=== PATIENT | female | born 2000 | race Caucasian/White ===

== ENCOUNTER 2018-08-13 19:07 | Emergency (ER) | payer OTHER ==
[2018-08-13 19:35] VITALS: BP 124/76
[2018-08-13] MEDS ORDERED: Mupirocin 2% OINT* TUBE TOPICAL ONE (19:48)
--- NOTE | 2018-08-13 19:50 | UC ---
Laceration HPI - HPI Summary HPI Summary: Earlier this evening pt slipped on diving board and cut her L foot on the bottom. denies bleeding, severe pain, bruising. pt reports being up to date w/ her tetanus. - History Of Current Complaint Chief Complaint: UCLowerExtremity Stated Complaint: 3IN LAS.TO LT FOOT Time Seen by Provider: 08/13/18 19:29 Hx Obtained From: Patient Hx Last Menstrual Period: 2014 Pain Intensity: 2 Pain Scale Used: 0-10 Numeric - Allergies/Home Medications Allergies/Adverse Reactions: Allergies Allergy/AdvReac Type Severity Reaction Status Date / Time No Known Allergies Allergy Verified 08/13/18 19:35 Home Medications: Home Medications [place] 1 tab PO DAILY 08/13/18 [History Confirmed 08/13/18] PMH/Surg Hx/FS Hx/Imm Hx Previously Healthy: Yes - Surgical History Surgical History: None - Social History Alcohol Use: None Substance Use Type: None Smoking Status (MU): Never Smoked Tobacco Review of Systems All Other Systems Reviewed And Are Negative: Yes Constitutional: Positive: Negative Skin: Positive: Other - cut on the bottom of her L foot.. Negative: Bruising Physical Exam Triage Information Reviewed: Yes Appearance: Well-Appearing Vital Signs: Initial Vital Signs Temp 98.5 F 08/13/18 19:28 Pulse 87 08/13/18 19:28 Resp 12 08/13/18 19:28 BP 124/76 08/13/18 19:28 Pulse Ox 100 08/13/18 19:28 Vital Signs Reviewed: Yes Skin: Positive: Other - superifical abrasion, linear, nontender and not through dermis. Laceration Course/Dx - Course/Dx Course Of Treatment: Plantar abrasion on L foot. - Differential Dx - Laceration/Wound Differental Diagnoses: Abrasion, Laceration - Diagnosis Provider Diagnosis: Abrasion foot/toe Discharge - Sign-Out/Discharge Documenting (check all that apply): Patient Departure All imaging exams completed and their final reports reviewed: No Studies - Discharge Plan Condition: Good Disposition: HOME Prescriptions: Bacitracin OINT* 113.4 gm .SEE ORDER DAILY #1 tube Patient Education Materials: Abrasion (ED) Referrals: Becki Rodriguez MD [Primary Care Provider] - Additional Instructions: Please keep antibiotic ointment on for at least 24 hrs. Keep area clean and dry afterwards. - Billing Disposition and Condition Condition: GOOD Disposition: Home
== END 2018-08-13 20:10 | disposition home or self-care (01) ==
LOC: UCEAST 19:07
DX: S90.415A Abrasion, left lesser toe(s), initial encounter (principal); W01.0XXA Fall on same level from slipping, tripping and stumbling without subsequent striking against object, initial encounter; Y92.9 Unspecified place or not applicable
CPT/HCPCS: 99212; G0463

== ENCOUNTER 2018-10-15 20:12 | Emergency (ER) | payer OTHER ==
[2018-10-15] MEDS ORDERED: NS 0.9% 1000 ML** 2,000 ML IV ONE (20:19)
--- NOTE | 2018-10-15 20:37 | ED ---
Syncope/Near Syncope - HPI Summary HPI Summary: Pt is a 18 y/o female who presents to the ED s/p syncope. Around 20:00 today she was watching blood being drawn when she became lightheaded. Pt is currently an EMT student shadowing in the ED. The nurse sat her in a chair and went to get her water, and came back to the pt passed out. Pt currently feels back to normal. She states that around 14:00 today she gave blood, and donates blood every 60 days. Pt ate enough food and drank enough water today. She notes that she does not menstruate for the past four years because of her control. Her last syncopal episode was a long time ago. - History Of Current Complaint Time Seen by Provider: 10/15/18 20:14 Hx Obtained From: Patient Onset/Duration: Sudden Onset, Lasting Hours - at 20:00, Resolved Context: Loss Of Consciousness Activity At Onset: Other - watching blood drawn Alleviating Factor(s): Spontaneous Resolution Associated Signs And Symptoms: Lightheadedness - Allergies/Home Medications Allergies/Adverse Reactions: Allergies Allergy/AdvReac Type Severity Reaction Status Date / Time No Known Allergies Allergy Verified 08/13/18 19:35 PMH/Surg Hx/FS Hx/Imm Hx Endocrine/Hematology History: Denies: Hx Diabetes Neurological History: Reports: Other Neuro Impairments/Disorders - Syncope Infectious Disease History: No Infectious Disease History: Denies: Traveled Outside the [place] in Last 30 Days - Family History Known Family History: Negative: Diabetes - Social History Alcohol Use: None Hx Substance Use: No Substance Use Type: Reports: None Hx Tobacco Use: No Smoking Status (MU): Never Smoked Tobacco Review of Systems Negative: Fever Neurological: Other - Lightheadedness Positive: Syncope All Other Systems Reviewed And Are Negative: Yes Physical Exam - Summary Physical Exam Summary: VITAL SIGNS: Reviewed. GENERAL: Patient is a well-developed and nourished FEMALE who is lying comfortable in the stretcher. Patient is not in any acute respiratory distress. HEAD AND FACE: No signs of trauma. No ecchymosis, hematomas or skull depressions. No sinus tenderness. EYES: PERRLA, EOMI x 2, No injected conjunctiva, no nystagmus. EARS: Hearing grossly intact. Ear canals and tympanic membranes are within normal limits. MOUTH: Oropharynx within normal limits. NECK: Supple, trachea is midline, no adenopathy, no JVD, no carotid bruit, no c- spine tenderness, neck with full ROM. CHEST: Symmetric, no tenderness at palpation LUNGS: Clear to auscultation bilaterally. No wheezing or crackles. CVS: Regular rate and rhythm, S1 and S2 present, no murmurs or gallops appreciated. ABDOMEN: Soft, non-tender. No signs of distention. No rebound no guarding, and no masses palpated. Bowel sounds are normal. EXTREMITIES: FROM in all major joints, no edema, no cyanosis or clubbing. NEURO: Alert and oriented x 3. No acute neurological deficits. Speech is normal and follows commands. SKIN: Dry and warm. Pale. Triage Information Reviewed: Yes Vital Signs On Initial Exam: Initial Vitals Temp Pulse Resp BP Pulse Ox 98.6 F 80 16 109/55 99 10/15/18 20:20 10/15/18 20:20 10/15/18 20:20 10/15/18 20:20 10/15/18 20:20 Vital Signs Reviewed: Yes Diagnostics - Vital Signs Vital Signs Temp Pulse Resp BP Pulse Ox 10/15/18 20:20 98.6 F 80 16 109/55 99 - Laboratory Result Diagrams: 10/15/18 20:28 10/15/18 20:28 Lab Statement: Any lab studies that have been ordered have been reviewed, and results considered in the medical decision making process. - EKG 20:37 Cardiac Rate: NL - 73 bpm EKG Rhythm: Sinus Rhythm Summary of EKG Findings: Normal axis. Normal interval. No ischemic changes. Course/Dx Course Of Treatment: Pt is a 18 y/o female who presents to the ED s/p syncope. A physical exam revealed pale skin. An EKG was normal with a rate of 73 bpm. Bloodwork without any abnormalities. Beta HCG within normal range. In the course she was given fluids. She will be discharged with a final dx of vasovagal syncope and instructions to stay well hydrated. Pt is agreeable with this plan. - Diagnoses Provider Diagnoses: Vasovagal syncope Discharge - Sign-Out/Discharge Documenting (check all that apply): Patient Departure - Discharge Patient Received Moderate/Deep Sedation with Procedure: No - Discharge Plan Condition: Improved Disposition: HOME Patient Education Materials: Syncope (ED) Referrals: Becki Rodriguez MD [Primary Care Provider] - (1-2 days) Additional Instructions: Stay well hydrated, drink plenty of fluids. PLEASE RETURN TO THE ED IMMEDIATELY FOR WORSENING OR CONCERNING SYMPTOMS. - Attestation Statements Document Initiated by Scribe: Yes Documenting Scribe: Kate Metcalf Provider For Whom Scribe is Documenting (Include Credential): Maddi Jiang MD Scribe Attestation: IKate, scribed for Maddi Jiang MD on 10/15/18 at 3105. Status of Scribe Document: Ready
[2018-10-15 20:43] LABS: ABS Basophils 0.1 10^3/ul (0-0.2); ABS Eosinophils 0.1 10^3/ul (0-0.6); ABS Lymphocytes 3.5 10^3/ul (1.0-4.8); ABS Monocytes 0.7 10^3/ul (0-0.8); ABS Neutrophils 4.1 10^3/ul (1.5-7.7); ABS Nucleated RBC 0 10^3/ul; Eosinophil % 1.6 %; Hematocrit 34 % (33-41); Hemoglobin 11.4 g/dL (12.0-16.0); Lymphocyte % 41.7 %; Mean Corpuscular HGB Conc 33 g/dL (31-36); Mean Corpuscular Hemoglobin 28 pg (27-31); Mean Corpuscular Volume 83 fL (80-97); Mean Platelet Volume 8.8 fL (7.4-10.4); Nucleated Red Blood Cells % 0; Platelet Count 335 10^3/uL (150-450); Red Blood Count 4.12 10^6 /uL (3.70-4.87); Red Cell Distribution Width 14 % (10.5-15); White Blood Count 8.5 10^3/uL (3.5-10.8)
[2018-10-15 20:51] LABS: ALT 13 U/L (7-52); AST 15 U/L (13-39); Albumin 3.8 g/dL (3.2-5.2); Albumin/Globulin Ratio 1.5 (1-3); Alkaline Phosphatase 58 U/L (34-104); Anion Gap 7 mmol/L (2-11); Blood Urea Nitrogen 12 mg/dL (6-24); CO2 Carbon Dioxide 25 mmol/L (22-32); Calcium 8.8 mg/dL (8.6-10.3); Chloride 107 mmol/L (101-111); EGFR African American 119.2 (>60); EGFR Non-African American 98.5 (>60); Globulin 2.5 g/dL (2-4); Glucose 88 mg/dL (70-100); Potassium 3.7 mmol/L (3.5-5.0); Sodium 139 mmol/L (135-145); Total Protein 6.3 g/dL (6.4-8.9)
[2018-10-15 20:58] LABS: HCG Pregnancy < 0.60 mIU/mL
[2018-10-15 21:57] VITALS: BP 120/62
== END 2018-10-15 21:30 | disposition home or self-care (01) ==
LOC: ED 20:12
DX: R55 Syncope and collapse (principal)
CPT/HCPCS: 36415; 80053; 83735; 84702; 85025; 93005; 96360; 99282